=== PATIENT | male | born 1980 | race Caucasian/White ===

== ENCOUNTER 2017-01-02 02:14 | Emergency (ER) | payer SELFPAY ==
[~2017-01-02] VITALS: Ht 177.8 cm; Wt 75.0 kg
[2017-01-02] MEDS ORDERED: ONDANSETRON 4MG ODT PO ONE (03:45)
[2017-01-02] MEDS ORDERED: KETOROLAC 30MG/ML VIAL IM ONE (03:45)
[2017-01-02 03:57] LABS: HEMATOCRIT. 37.9 % (42.0-52.0); HEMOGLOBIN. 13.1 g/dL (14.0-18.0); MEAN CORPUSCULAR HEMOGLOBIN 31.4 pg (28.0-32.0); MEAN CORPUSCULAR VOLUME 90.9 fL (80.0-94.0); PLATELET 292 x1000/uL (130-400); RED BLOOD CELL COUNT 4.17 mill/uL (4.7-6.1); RED CELL DISTRIBUTION WIDTH 12.8 % (11.6-14.6)
[2017-01-02 04:03] LABS: CHLORIDE 102 mEq/L (98-107)
[2017-01-02 04:18] LABS: CARBON DIOXIDE 30 mEq/L (21-32)
[2017-01-02 04:20] LABS: ETHANOL BLOOD < 10 mg/dL
[2017-01-02 04:39] LABS: PLATELET ESTIMATE NORMAL
[2017-01-02] MEDS ORDERED: IBUPROFEN 600MG TABLET PO NR (05:15)
[2017-01-02 05:26] VITALS: BP 112/69
== END 2017-01-02 04:59 | disposition home or self-care (01) ==
LOC: ER 02:14
DX: M79.671 Pain in right foot (principal); M79.672 Pain in left foot; F12.90 Cannabis use, unspecified, uncomplicated; F17.210 Nicotine dependence, cigarettes, uncomplicated
CPT/HCPCS: 36415; 80053; 85025; 99284; G0482; Z7610; 99283; J1885; Q0162

== ENCOUNTER 2017-01-02 07:41 | Emergency (ER) | payer SELFPAY ==
[~2017-01-02] VITALS: Ht 185.4 cm; Wt 82.0 kg
[2017-01-02] MEDS ORDERED: ALBUTEROL (0.083%) 2.5MG/3ML NEB HHN STA (08:08)
[2017-01-02] MEDS ORDERED: PREDNISONE 20MG TABLET PO STA (08:08)
[2017-01-02] MEDS ORDERED: IPRATROPIUM BROMIDE (0.02%) 0.5MG/2.5ML NEB HHN STA (08:08)
[2017-01-02 10:10] VITALS: BP 97/51
== END 2017-01-02 10:41 | disposition home or self-care (01) ==
LOC: ER 07:52
DX: M79.672 Pain in left foot (principal); M79.671 Pain in right foot; F17.200 Nicotine dependence, unspecified, uncomplicated; F12.10 Cannabis abuse, uncomplicated; Z59.0 Homelessness
CPT/HCPCS: 99283; Z7610